=== PATIENT | male | born 1965 | race American Indian/Alaskan Native ===

== ENCOUNTER → 2019-11-22 13:32 | Day surgery (SDC) | payer OTHER, SELFPAY ==
[2019-11-22] VITALS (8 sets, daily range): BP systolic 177–199; BP diastolic 85–102; PULSE 73–79; RESP 20–25; TEMP 35.9–36.3; O2SAT 89–93; BMI 30.3
--- NOTE | 2019-11-22 | PATH_ITS ---
[facility] Accession Number: [id number] . 01 Material submitted: . gastrointestinal site - GASTRIC BODY OF ANTRUM BX . 02 Diagnosis: Stomach, Biopsy: Antral and body-type mucosa with mild chronic gastritis. Negative for Helicobacter by immunohistochemistry. Negative for intestinal metaplasia. Negative for dysplasia and malignancy. V 11/27/2019 1421 Local . 02 Electronically signed: . Tracie Barakat MD, Pathologist NPI- [id number] . 01 Gross description: . GASTRIC BODY OF ANTRUM BX: Received in formalin are 3 fragment(s) of marie, soft tissue measuring 0.5 x 0.3 x 0.1 cm to 0.3 x 0.2 x 0.2 cm submitted entirely in 1 cassette(s) /QBJ 11/23/2019 0944 Local . 02 Microscopic: . An immunohistochemical stain was performed to evaluate for Helicobacter organisms and is negative. The control stain showed appropriate reactivity. . * This test was developed and its performance characteristics determined by [facility]. It has not been cleared or approved by the U.S. Food and Drug Administration. The FDA has determined that such clearance or approval is not necessary. This test is used for clinical purposes. It should not be regarded as investigational or for research. . 02 Pathologist provided ICD-10: R11.2 . 02 CPT . 910076, [id number] Performed at: 01 [facility] [address] [facility], [place], [place] [id number] MD Fercho So MD Phone: [phone] Performed at: 02 [facility] [place] [address] [place], [place] [id number] MD Tracie Barakat MD Phone: [phone]
--- NOTE | 2019-11-22 11:51 | P.HP_ITS ---
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 Please refer to that note for fur ther details. Patient has held Plavix for the past 5 days Meds Home Medications and Allergies Home Medications Medication Instructions Recorded Confirmed Type CINNAMON BARK (Cinnamon) 1,000 mg PO QDAY #0 12/28/11 History MAGNESIUM ([facility] 1 mg PO QDAY #0 12/28/11 History MAGNESIUM) Multivitamin and [id number] (ONE 1 mg PO QDAY #0 12/28/11 History DAILY MEN'S) TURMERIC EXTRACT (#[facility] 1 mg PO QDAY #0 12/28/11 History TURMERIC) Thioctic Acid (ALPHA LIPOIC ACID~) 1 mg PO QDAY #0 12/28/11 History VITAMIN B COMPLEX (SUPER B COMPLEX) 1 mg PO QDAY #0 12/28/11 History [L-CARNITINE] 500 mg PO QDAY #0 12/28/11 History [GAIL RED/KRILL] 1 mg PO QDAY #0 12/28/11 History lisinopril 20 mg PO QAM #90 12/28/11 11/22/19 Rx simvastatin [Zocor] 1 mg PO HS #0 12/28/11 11/22/19 History carvedilol [Coreg] 6.25 mg PO BID #180 05/16/12 11/22/19 Rx clopidogrel [Plavix] 75 mg PO DAILY 11/22/19 11/22/19 History Allergies Allergy/AdvReac Type Severity Reaction Status Date / Time No Known Drug Allergies Allergy Verified 11/22/19 14:11 Exam Narrative Exam Narrative: General: Patient is obese, not in apparent distress Cardiovascular: Regular rate and rhythm, no murmurs, rubs, or gallops; no evidence of edema; no palpable abdominal aortic aneurysm Gastrointestinal: Normoactive bowel sounds, soft, nontender, nondistended, no rebound tenderness, no hepatosplenomegaly, no evidence of hernia Objective Labs Result Diagrams: 11/22/19 14:20 11/22/19 14:20 Assessment & Plan Assessment & Plan narrative: 54-year-old male with end-stage renal disease on hemodialysis who is here for further evaluation of nausea and vomiting. Anti-pl atelet agents have been held for the procedure. He is scheduled for hemodialysis tomorrow as it was supposed to be this afternoon but was rescheduled due to this procedure Regarding the procedure(s), the risks and potential complications, benefits, and alternatives (including not doing the procedure) were discussed with the patient. The risks include but are not limited to bleeding, splenic injury, infection, perforation which may require surgical intervention, missed lesions, and adverse reactions to sedative medicines. After a question and answer period, the patient agreed to proceed with the procedure(s) and gives informed consent.
[2019-11-22] MEDS: SODIUM CHLORIDE 0.9% 1,000 ML 70 ML IV (14:08)
[2019-11-22 14:35] LABS: Add Manual Diff / Slide Review NO; Basophils Absolute Auto 100 /uL (0-100); Basophils Percent Auto 1.4 % (0-2); Eosinophils Absolute Auto 400 /uL (0-450); Eosinophils Percent Auto 4.1 % (2-4); Hematocrit 34.7 % (41-53); Hemoglobin 11.3 g/dL (13.5-17.5); Lymphocytes Absolute Auto 900 /uL (1100-4500); Lymphocytes Percent Auto 8.6 % (25-40); Mean Corpuscular HGB Conc 32.5 % (30-36); Mean Corpuscular Hemoglobin 28.6 PG (26-34); Monocytes Absolute Auto 1200 /uL (0-900); Monocytes Percent Auto 11.3 % (3-14); Neutrophils Absolute Auto 7600 /uL (1500-7000); Neutrophils Percent Auto 74.6 % (50-75); Platelet Count 331 X10^3/uL (150-400); Red Blood Cell Count 3.95 X10^6/uL (4.5-5.9); Red Cell Distribution Width 19.8 % (11.6-14.8); White Blood Cell Count 10.2 X10^3/uL (4.5-11.0)
[2019-11-22 14:43] LABS: Alanine Aminotransferase 13 IU/L (<50); Albumin 4.3 g/dL (3.5-5.0); Albumin Globulin Ratio 1.2 (1.0-2.8); Alkaline Phosphatase 92 U/L (38-126); Aspartate Aminotransferase 19 IU/L (17-59); BUN Creatinine Ratio 6.5 (6-22); Bilirubin Total 0.6 mg/dL (0.2-1.3); Blood Urea Nitrogen 55 mg/dL (9-20); Calcium 9.3 mg/dL (8.4-10.2); Carbon Dioxide 25 mmol/L (22-32); Chloride 96 mmol/L (98-107); Estimated Glomerular Filt Rate 6.6 mL/min (>60); Globulin 3.5 g/dL (1.7-4.1); Glucose 119 mg/dL (70-100); HEMOLYSIS < 15 (0-50); Sodium 134 mmol/L (137-145); Total Protein 7.8 g/dL (6.3-8.2)
[2019-11-22 14:45] LABS: Potassium 6.2 mmol/L (3.4-5.1)
--- NOTE | 2019-11-22 14:57 | PM.OP.ENDO ---
Operative Date/Time/Diagnoses Date of procedure: 11/22/19 Procedure Notes Procedure in detail: Surgeon: Emmanuel Anthony MD Procedure: Esophagogastroduodenoscopy with biopsy Preoperative diagnosis: Nausea and vomiting; history of gastroparesis Postoperative diagnosis: Essentially normal EGD status post gastric biopsies for H pylori Medications: Monitored anesthesia care given multiple comorbidities Preanesthesia Assessment An H and P was performed/updated and the Px?s ASA class is 2 per Anesthesia. The procedure was discussed in detail with the patient. The potential risks and complications including infection, bleeding, missed lesions, perforation, need for surgery in case of perforation, prolonged hospital stay, and were explained. A brief question and answer period was allotted and once all questions were answered, informed consent was obtained. The patient has held his Plavix for 5 days prior to the procedure. The patient was brought back to the procedure room and placed on standard monitoring. The patient?s vital signs were monitored continuously throughout the entire procedure by the anesthesiologist. Prior to starting, a timeout was performed to confirm the patient?s identity, allergies, medications, and procedure. Procedure in detail The patient was placed in left lateral decubitus position and a bite block was inserted. The tip of the upper endoscope was placed into the mouth and advanced without difficulty under direct visualization into the esophagus. Esophagus: Normal esophagus with no evidence of esophagitis Stomach: No large amount of residual fluid or food; mucosa appeared normal; biopsies taken from the body and antrum to rule out H pylori Duodenum: Normal visualized mucosa. Mildly prominent minor ampulla The patient tolerated the procedure well and will be brought back to the recovery area to be discharged once criteria are met. Complications There were no complications and estimated blood loss was minimal. Recommendations: Recheck potassium prior to discharge; if remains elevated we will send patient to the ED for acute management Resume previous diet Continue outPx medications Restart Plavix tomorrow Follow up pathology results Call our office ([facility]) to schedule follow-up with Dr. Antoine after your gastric emptying study is performed An emergency contact number was given to the patient for any complications related to the procedure
[2019-11-22 15:03] LABS: COVID19 -Nasal RAPID Negative (Negative)
--- NOTE | 2019-11-22 15:30 | PM.PN.1 ---
Subjective Subjective Date Patient Seen: 11/22/19 Time Patient Seen: 15:30 Interval history: THE PATIENT HAD A POTASSIUM 6.2 PRIOR TO THE PROCEDURE. HE TOLERATED THE PROCEDURE WITHOUT INCIDENT. HIS POTASSIUM WILL BE RECHECKED PRIOR TO DISCHARGE. IF IT REMAINS ELEVATED, HE WILL NEED TO BE SENT TO THE ED FOR ACUTE MANAGEMENT, AND FURTHER DISPOSITION WILL BE HANDLED FROM THE ED Exam Vital Signs (past 8 hours): - 11/22/19 14:33 Temperature 97.2 F L Pulse Rate 73 Respiratory Rate 20 Blood Pressure 198/86 H Pulse Oximetry 91 Oxygen Delivery Method Room Air Objective Labs Result Diagrams: 11/22/19 14:20 11/22/19 14:20 Labs: Laboratory Results - last 24 hr 11/22/19 11/22/19 11/22/19 14:00 14:20 14:20 WBC 10.2 RBC 3.95 L Hgb 11.3 L Hct 34.7 L MCV 88.0 MCH 28.6 MCHC 32.5 RDW 19.8 H Plt Count 331 Neut % (Auto) 74.6 Lymph % (Auto) 8.6 L [place] % (Auto) 11.3 Eos % (Auto) 4.1 H Baso % (Auto) 1.4 Neut # (Auto) 7600 H Lymph # (Auto) 900 L [place] # (Auto) 1200 H Eos # (Auto) 400 Baso # (Auto) 100 Sodium 134 L Potassium 6.2 H Chloride 96 L Carbon Dioxide 25 BUN 55 H Creatinine 8.47 H* Estimated GFR 6.6 L BUN/Creatinine Ratio 6.5 Glucose 119 H Calcium 9.3 Total Bilirubin 0.6 AST 19 ALT 13 Alkaline Phosphatase 92 Total Protein 7.8 Albumin 4.3 Globulin 3.5 Albumin/Globulin Ratio 1.2 COVID-19 PCR Negative
--- NOTE | 2019-11-22 15:41 | SUR.PHASEI ---
Addendum entered by Rina Weiner R.N. 11/22/19 15:42: Pt declines ice chips or sips of water. Original Note: Lab here for blood draw. Pt denies pain but I'm about to have some.
--- NOTE | 2019-11-22 15:46 | SUR.PHASEI ---
Pt awake, O2 reduced to 3LNP
--- NOTE | 2019-11-22 15:52 | SUR.PHASEI ---
Spoke with Dr. Mckenna regarding BP; last beta thierry was taken yesterday morning. VVO taken.
[2019-11-22] MEDS: carvediloL 6.25 MG TABLET PO (15:56)
--- NOTE | 2019-11-22 16:00 | SUR.PHASEI ---
Pt awake, responsive to voice, resting quietly. Will transfer to OPD on O2 and continuous pulse oximeter. Pt states that his BP typically runs in the 150s when his med is current.
[2019-11-22 16:06] LABS: HEMOLYSIS < 15 (0-50)
--- NOTE | 2019-11-22 16:15 | SUR.PHASEII ---
TO OPD, bed down and locked, awake, oriented. Pt has sleep apnea an uses his CPAP nightly but did not bring it today. Place on O2 at 5LNP and continuous pulse oximeter. Sat ranges from upper 80s, but primarily is in the low 90s, as high as 96% when he coughs. Current K+ 6.0; will inform Dr. Anthony.
--- NOTE | 2019-11-22 16:18 | SUR.PHASEII ---
Reported to Janet Perez RN on arrival to OPD.
--- NOTE | 2019-11-22 16:31 | SUR.PHASEII ---
Received report from Phase I . Patient denies any pain at this time. Oxygen saturation 85% on 4 liters nasal cannula but patient denies SOB. Faint crackles to right lower base auscultated. Patient's oxygen saturation increases to 96% with deep breathing but does not remain there. Repeat Potassium level 6.0. Notified Dr Anthony of findings. Dr Anthony desires for patient to go to ER for evaluation . Patient agreeable but not pleased with decision. Notified caregiver of plan. Called report to Noni in ER.
== END | disposition home or self-care (01) ==
PROVIDERS: Anesthesiology; Family Provider Nurse Practitioner Acute Care; Referring Provider Internal Medicine Gastroenterology; Visit Provider Internal Medicine Gastroenterology
PROC: 0DJ08ZZ Inspection of Upper Intestinal Tract, Via Natural or Artificial Opening Endoscopic (ICD-10-PCS; CPT 43235; principal; 2019-11-22 15:00)
DX: R11.2 Nausea with vomiting, unspecified (principal); D64.9 Anemia, unspecified; Z99.2 Dependence on renal dialysis
CPT/HCPCS: 43239; 36415; 80053; 84132; 85025; 87635; 93005; 99283; J2704

== ENCOUNTER 2019-11-22 16:52 | Emergency (ER) | payer OTHER, SELFPAY ==
[2019-11-22 17:01] VITALS: BP 201/95; PULSE 80; RESP 26; TEMP 36.6; O2SAT 85; BMI 30.3
[2019-11-22 17:48] VITALS: PULSE 80; O2SAT 91
[2019-11-22 18:00] VITALS: PULSE 79; O2SAT 93
[2019-11-22 18:01] VITALS: BP 213/97; PULSE 79; O2SAT 92
--- NOTE | 2019-11-22 18:04 | PC.NURSE ---
decreased oxygen to 4LNC . sats 91 percent
--- NOTE | 2019-11-22 18:09 | ED_ITS ---
HPI - General Adult General Chief complaint: Hypertension Stated complaint: high potassium and low oxygen Time Seen by Provider: 11/22/19 18:00 Source: patient Mode of arrival: Wheelchair Limitations: no limitations History of Present Illness HPI narrative: 54-year-old male who is end stage renal disease on dialysis who skipped his dialysis today in order to have an endoscopy. Is scheduled for dialysis tomorrow at 1000 hours in the morning. He was sent to the emergency department because after his endoscopy was noted that the patient had a potassium greater than 6 and had oxygen saturations less than 90. Patient states that he is not having any symptoms. He is fairly agitated and standoffish with regard to answering questions. Kept stating that he does not want to be in the emergency department and he would rather just go home. Denies any fevers. Unable to obtain any other HPI secondary to patient's willingness to participate. Related Data Home Medications Medication Instructions Recorded Confirmed CINNAMON BARK (Cinnamon) 1,000 mg PO QDAY #0 12/28/11 MAGNESIUM ([facility] 1 mg PO QDAY #0 12/28/11 MAGNESIUM) Multivitamin and [id number] (ONE 1 mg PO QDAY #0 12/28/11 DAILY MEN'S) TURMERIC EXTRACT (#[facility] 1 mg PO QDAY #0 12/28/11 TURMERIC) Thioctic Acid (ALPHA LIPOIC ACID~) 1 mg PO QDAY #0 12/28/11 VITAMIN B COMPLEX (SUPER B COMPLEX) 1 mg PO QDAY #0 12/28/11 [L-CARNITINE] 500 mg PO QDAY #0 12/28/11 [GAIL RED/KRILL] 1 mg PO QDAY #0 12/28/11 simvastatin [Zocor] 1 mg PO HS #0 12/28/11 11/22/19 clopidogrel [Plavix] 75 mg PO DAILY 11/22/19 11/22/19 Previous Rx's Medication Instructions Recorded lisinopril 20 mg PO QAM #90 12/28/11 carvedilol [Coreg] 6.25 mg PO BID #180 05/16/12 Allergies Allergy/AdvReac Type Severity Reaction Status Date / Time No Known Drug Allergies Allergy Verified 11/22/19 17:09 Review of Systems Constitutional Constitutional: Denies fever(s) Cardiovascular Cardiovascular: Denies chest pain and Denies dyspnea Respiratory Respiratory: Denies dyspnea Gastrointestinal Gastrointestinal: Denies abdominal pain, Denies nausea and Denies vomiting Musculoskeletal Musculoskeletal: Denies arthralgias and Denies myalgias Integumentary/Breasts Skin/Breast: Denies rash Neurologic Neurologic: Denies confusion Psychiatric Psychiatric: Denies confusion Hematologic/Lymphatic Hematologic/Lymphatic: Denies easy bleeding and Denies easy bruising Patient History Medical History ESRD (end stage renal disease) on dialysis (Inactive) Social History household members: none Smoking Status: Former smoker Smoking Status: Former smoker alcohol intake frequency: holidays/special occasions only Substance Use Type: does not use Exam Initial Vital Signs Initial Vital Signs: Vital Signs Temperature 97.8 F 11/22/19 17:01 Pulse Rate 80 11/22/19 17:01 Respiratory Rate 26 H 11/22/19 17:01 Blood Pressure 201/95 H 11/22/19 17:01 Pulse Oximetry 85 L 11/22/19 17:01 Const General: comfortable Limitations: mental status not altered HENMT Head: normal to inspection and normocephalic Resp Effort & Inspection: normal respiratory effort Auscultation: clear to auscultation bilaterally Cardio Rate: regular rate Rhythm: regular rhythm GI Inspection: non-distended Palpation: soft Skin Lesions: no lesions Rashes: no rashes Neuro General: patient alert, patient awake and patient oriented x3 Cognition: normal cognition Speech: speech normal Extrem Other: Bilateral lower extremity amputation Psych Appearance: grossly normal and well kempt Scores GCS [place] coma scale eye opening: Spontaneous [place] coma scale verbal response: Orientated [place] coma scale motor response: Obey commands [place] coma scale total score: 15 Course Orders Ordered: ED Orders 11/22/19 16:58 EKG-12 Lead Stat Vital Signs Vital signs: Vital Signs - 8 hr 11/22/19 17:01 11/22/19 17:48 11/22/19 18:00 Temperature 97.8 F Pulse Rate 80 80 79 Respiratory Rate 26 H Blood Pressure 201/95 H Pulse Oximetry 85 L 91 93 11/22/19 18:01 Temperature Pulse Rate 79 Respiratory Rate Blood Pressure 213/97 H Pulse Oximetry 92 Medical Decision Making ECG Data Attestation: I personally reviewed and interpreted this ECG as follows: Prior ECG tracings: not available for review Interpretation: Sinus rhythm Ventricular rate 80 Left axis deviation Normal QRS Normal QTC Peak T-waves V3 V4 MDM Narrative Medical decision making narrative: Patient was alert oriented x3. GCS of 15. Not clinically intoxicated. In my opinion had capacity make decisions. Patient was for some reason extremely angry about being here in the ER. When I asked him why this was he stated that he just wanted to go home. He states that he is spent the better part of the past year in hospitals secondary to his dialysis and other chronic medical problems. Patient's potassium was elevated. He did have peaked T-waves in V3 and V4 but no other signs of hyperkalemia on his EKG. Patient also had an oxygen saturation lower than 90% on room air which improved with oxygen. He does not have oxygen at home but does have a CPAP at home. Patient denied chest pain. Denies shortness of breath. He stated that he felt fine. Patient stated he did not want any further treatment in the emergency department. He did give me the name of his physical biochemist. I informed patient that he should contact his physical biochemist secondary to his potassium level and also his oxygen saturations because he potentially would need dialysis this evening. Patient did give me the name of his physical biochemist however stated that he did not want me to call this individual. We did discuss his condition. We did discuss the concerns I had with regard to his high potassium is low oxygen. We did discuss the potential life-threatening nature of these findings. Patient expressed understanding of this. He again stated that he did not want any further treatment and wanted to be discharged. Against Medical Advice forms were completed. Patient left the emergency department without any discharge paperwork. Prior to needing he was informed that he should return to the emergency department if his symptoms were to worsen and he should keep his dialysis appointment tomorrow. He expressed agreement with this. Discharge Plan Departure Patient Disposition: Left Against Medical Advice Clinical Impression: Hyperkalemia, Hypoxia, ESRD (end stage renal disease) on dialysis Discharge Date/Time: 11/22/19 18:42 Prescriptions: No Action simvastatin [Zocor] 20 MG tablet 1 mg PO HS Qty: 0 RF: 0 MAGNESIUM ([facility] MAGNESIUM) 1 mg PO QDAY Qty: 0 RF: 0 Multivitamin and Cykhvwrg21 (ONE DAILY MEN'S) 1 mg PO QDAY Qty: 0 RF: 0 TURMERIC EXTRACT (#[facility] TURMERIC) 1 mg PO QDAY Qty: 0 RF: 0 [GAIL RED/KRILL] 1 mg PO QDAY Qty: 0 RF: 0 CINNAMON BARK (Cinnamon) 1,000 mg PO QDAY Qty: 0 RF: 0 Thioctic Acid (ALPHA LIPOIC ACID~) 1 mg PO QDAY Qty: 0 RF: 0 VITAMIN B COMPLEX (SUPER B COMPLEX) 1 mg PO QDAY Qty: 0 RF: 0 [L-CARNITINE] 500 mg PO QDAY Qty: 0 RF: 0 lisinopril 10 MG tablet 20 mg PO QAM Qty: 90 RF: 0 carvedilol [Coreg] 6.25 MG tablet 6.25 mg PO BID Qty: 180 RF: 0 clopidogrel [Plavix] 75 mg Tablet 75 mg PO DAILY RF: 0 Stand Alone Forms: Against Medical Advice
--- NOTE | 2019-11-22 18:15 | PC.NURSE ---
INCREASED OXYGEN TO 5L Nc PT SATS DECREASED TO 89% ON 4lnc
== END 2019-11-22 18:42 | disposition left against medical advice (07) ==
PROVIDERS: Emergency Provider Emergency Medicine; Family Provider Nurse Practitioner Acute Care
DX: E87.5 Hyperkalemia (principal); R09.02 Hypoxemia; N18.6 End stage renal disease; Z99.2 Dependence on renal dialysis
CPT/HCPCS: 93005; 99283

== ENCOUNTER → 2019-11-30 09:45 | Outpatient (CLI) | payer OTHER, SELFPAY ==
--- NOTE | 2019-11-30 | DI.NM.S_ITS ---
PROCEDURE: NM GASTRIC EMPTYING STUDY RADIOPHARMACEUTICAL: 1.0 mCi Tc-99m sulfur colloid in an egg sandwich. INDICATIONS: Nausea with vomiting, unspecified TECHNIQUE: A Tc-99m labeled sulfur colloid labeled egg sandwich or oatmeal was served to the patient. Anterior and posterior planar images of the abdomen were obtained at 0 minutes and 30 minutes, then at hourly intervals up to 4 hours. The patient was upright and ambulating during the interval. COMPARISON: None. FINDINGS: The stomach has normal size, morphology, and position. There is normal emptying of solid gastric contents from the stomach by visual inspection. No gastroesophageal reflux is visualized. The percentage of tracer retained at specific time points are as follows: Time point Percent gastric retention Normal range 30 minutes 41% 70% or more 1 hour 12% 30% to 90% 2 hours less than 1% 60% or less 3 hours not applicable 30% or less 4 hours not applicable 10% or less IMPRESSION: Scintigraphic findings suggest rapid gastric emptying. Dictated by: Oscar Ruiz M.D. on 11/30/2019 at 14:20 Approved by: Oscar Ruiz M.D. on 11/30/2019 at 14:22
== END ==
PROVIDERS: Family Provider Nurse Practitioner Acute Care; Referring Provider Internal Medicine Gastroenterology; Visit Provider Internal Medicine Gastroenterology
DX: R11.2 Nausea with vomiting, unspecified (principal)
CPT/HCPCS: 78264; A9541